=== PATIENT | female | born 1940 | race Two or more races ===

== ENCOUNTER 2021-10-11 20:01 | Emergency (ER) | payer MEDICAID ==
[~2021-10-11] VITALS: Ht 154.9 cm; Wt 132.0 kg
[~2021-10-11 20:01] MED LIST: ASPI-1497 PO; benazepril
[2021-10-11] MEDS ORDERED: HYDROCODONE/ACETAMINOPHEN 5/325MG TABLET PO ONE (21:15)
[2021-10-11 22:06] VITALS: BP 142/76
[2021-10-11] MEDS ORDERED: TOPUD MT (23:04)
== END 2021-10-11 23:45 | disposition home or self-care (01) ==
LOC: ER 20:01
DX: S09.8XXA Other specified injuries of head, initial encounter (principal); S93.402A Sprain of unspecified ligament of left ankle, initial encounter; I10 Essential (primary) hypertension; W01.0XXA Fall on same level from slipping, tripping and stumbling without subsequent striking against object, initial encounter; Y93.89 Activity, other specified; Y92.9 Unspecified place or not applicable; Z86.19 Personal history of other infectious and parasitic diseases
CPT/HCPCS: 73080; 73610; 99284